=== PATIENT | female | born 1970 | race African-American/Black ===

== ENCOUNTER 2019-02-11 21:40 | Emergency (ER) | payer SELFPAY ==
[~2019-02-11] VITALS: Ht 165.1 cm; Wt 85.0 kg
[2019-02-12] MEDS ORDERED: KETOROLAC 30MG/ML VIAL IM ONE
[2019-02-12 02:00] VITALS: BP 147/85
== END 2019-02-12 02:00 | disposition home or self-care (01) ==
LOC: ER 02-12 01:56
DX: S92.422A Displaced fracture of distal phalanx of left great toe, initial encounter for closed fracture (principal); I10 Essential (primary) hypertension; Z88.2 Allergy status to sulfonamides; W10.8XXA Fall (on) (from) other stairs and steps, initial encounter; Y93.89 Activity, other specified; Y92.018 Other place in single-family (private) house as the place of occurrence of the external cause
CPT/HCPCS: 73630; 96372; 99283; J1885; Z7610